=== PATIENT | female | born 1945 | race Caucasian/White ===

== ENCOUNTER 2019-03-14 08:37 | Day surgery (SDC) | payer MEDICARE ==
[~2019-03-14 08:37] MED LIST: Acetaminophen TAB* 325 MG PO PRN; Buffered Lidocaine 1% SYRIN* 1 ML/SYRINGE INTRADERM ONE
[2019-03-14] MEDS ORDERED: Midazolam* 1 MG/ML 2 ML VIAL (2 MG) ONE ×2 (10:29→11:02)
[2019-03-14] MEDS ORDERED: fentaNYL* 50 MCG/ML 2 ML VIAL (100 MCG VIAL) ONE (10:29)
[2019-03-14] MEDS ORDERED: Phenylephrine OPHTH SOL 2.5%* 2 ML ONE (11:43)
[2019-03-14] MEDS ORDERED: Ketorolac 0.5% OPHTH (NF) 0.5 % 5 ML BTL ONE (11:43)
[2019-03-14] MEDS ORDERED: Tropicamide 1% OPTH.SOL* BTL ONE (11:43)
[2019-03-14] MEDS ORDERED: Lidocaine 1%* 5 ML VIAL ONE (11:43)
[2019-03-14] MEDS ORDERED: Tetracaine 0.5% OPTH.SOL 4 ML* 1 DROP BTL ONE (11:43)
[2019-03-14] MEDS ORDERED: Cyclopentolate 1% OPTH.SOL* 2 ML BTL ONE (11:43)
[2019-03-14] MEDS ORDERED: Neomycin/Polymy/Dex OPHTH.OIN* 3.5 GM ONE (11:43)
[2019-03-14 11:53] VITALS: BP 126/51
--- NOTE | 2019-03-14 14:43 | OP ---
DATE OF OPERATION: 03/14/19 [facility] DATE OF : 45 SURGEON: Dr. Porfirio Bethea. DRAFTER ASSISTANT: None. ANESTHESIA: Topical with intravenous sedation. PRE-OP DIAGNOSIS: Cataract, left eye. POST-OP DIAGNOSIS: Cataract, left eye. OPERATIVE PROCEDURE: Phacoemulsification and cataract extraction with posterior chamber intraocular lens implant, left eye. COMPLICATIONS: None. BLOOD LOSS: None. DESCRIPTION OF PROCEDURE: The patient was brought to the operating room and received a small amount of intravenous sedation. A drop of Tetracaine was placed in her left eye. She was prepped and draped in the usual sterile fashion for ophthalmic surgery and attention was directed to the left eye where a speculum was placed. A paracentesis was created at the 5 o'clock position and 0.1 cc of 1 percent preservative-free Lidocaine was injected into the anterior chamber followed by DisCoVisc. The eye was digitally stabilized while a 2.75 mm keratome was used to create a triplanar clear corneal incision at the 3 o'clock position. A continuous curvilinear capsulorrhexis was created with a cystotome and Utrata forceps. BSS on a cannula was used to hydrodissect the lens from the capsule. Phacoemulsification was performed in a divide-and- conquer technique to create four fragments which were removed. Residual cortical material was removed with irrigation and aspiration. DisCoVisc was used to inflate the capsular bag and an AU00T0 21.0 diopter lens was folded and inserted into the capsular bag. DisCoVisc was removed using irrigation and aspiration. BSS on a cannula was used to hydrate the corneal stroma and seal the wound. At the end of the case the pupil was round and the lens was centered. The eye was of normal pressure and the wound was water tight. The speculum was removed and topical Maxitrol ointment was placed on the surface of the eye. The eye was closed, patched and shielded and the patient was sent to the recovery room in stable condition with post operative instructions and follow-up appointment given. [id number]/[facility] #: [id number] MTDD
== END 2019-03-14 11:41 | disposition home or self-care (01) ==
LOC: OREAST 08:37
PROVIDERS: ATTEND Ophthalmology
DX: H25.12 Age-related nuclear cataract, left eye (principal); I10 Essential (primary) hypertension; I35.1 Nonrheumatic aortic (valve) insufficiency
CPT/HCPCS: A9270-GY; J2250; J3010; V2632

== ENCOUNTER 2019-03-21 10:36 | Day surgery (SDC) | payer MEDICARE ==
[2019-03-21] MEDS ORDERED: Neomycin/Polymy/Dex OPHTH.OIN* 3.5 GM ONE (11:42)
[2019-03-21] MEDS ORDERED: Tropicamide 1% OPTH.SOL* BTL ONE (11:42)
[2019-03-21] MEDS ORDERED: Phenylephrine OPHTH SOL 2.5%* 2 ML ONE (11:42)
[2019-03-21] MEDS ORDERED: Lidocaine 1%** 5 ML VIAL ONE (11:42)
[2019-03-21] MEDS ORDERED: Cyclopentolate 1% OPTH.SOL* 2 ML BTL ONE (11:42)
[2019-03-21] MEDS ORDERED: Ketorolac 0.5% OPHTH (NF) 0.5 % 5 ML BTL ONE (11:42)
[2019-03-21] MEDS ORDERED: Tetracaine 0.5% OPTH.SOL 4 ML* 1 DROP BTL ONE (11:42)
[2019-03-21] MEDS ORDERED: Midazolam* 1 MG/ML 2 ML VIAL (2 MG) ONE (12:47)
[2019-03-21] MEDS ORDERED: Propofol* 10 MG/ML 20 ML BTL ONE (12:59)
[2019-03-21] MEDS ORDERED: Lidocaine 2% PF * 5 ML VIAL ONE (12:59)
--- NOTE | 2019-03-21 13:43 | OP ---
DATE OF OPERATION: 03/21/19 DATE OF : 45 SURGEON: Dr. Porfirio Bethea CUSTOMER ASSISTANCE ASSOCIATE: None. ANESTHESIA: Topical with intravenous sedation. PRE-OP DIAGNOSIS: Cataract, right eye. POST-OP DIAGNOSIS: Cataract, right eye. OPERATIVE PROCEDURE: Phacoemulsification and cataract extraction with posterior chamber intraocular lens implant, right eye. COMPLICATIONS: None. BLOOD LOSS: None. OPERATIVE FINDINGS: The patient was brought to the operating room and received a small amount of int ravenous sedation. A drop of Tetracaine was placed in her right eye. She was prepped and draped in the usual sterile fashion for ophthalmic surgery and attention was directed to the right eye where a speculum was placed. A paracentesis was created at the 11 o'clock position and 0.1 cc of 1 percent p reservative-free Lidocaine was injected into the anterior chamber followed by DisCoVisc. The eye was digitally stabilized while a 2.75 mm keratome was used to create a triplanar clear corneal incision at the 9 o'clock position. A continuous curvilinear capsulorrhexis was created with a cystotome and Utrata forceps. BSS on a cannula was used to hydrodissect the lens from the capsule. Phacoemulsific ation was performed in a ejnoml-erk-[id number] technique to create four fragments which were removed. R esidual cortical material was removed with irrigation and aspiration. DisCoVisc was used to inflate t he capsular bag and an AU00T0 23.2 diopter lens was folded and inserted into the capsular bag. DisCo Visc was removed using irrigation and aspiration. BSS on a cannula was used to hydrate the corneal s troma and seal the wound. At the end of the case the pupil was round and the lens was centered. The eye was of normal pressure and the wound was water tight. The speculum was removed and topical Maxit rol ointment was placed on the surface of the eye. The eye was closed, patched and shielded and the patient was sent to the recovery room in stable condition with post operative instructions and follow -up appointment given. [id number]/[facility] #: [id number]
[2019-03-21 13:48] VITALS: BP 108/53
== END 2019-03-21 13:30 | disposition home or self-care (01) ==
LOC: OREAST 10:36
PROVIDERS: ATTEND Ophthalmology
DX: Z01.818 Encounter for other preprocedural examination (principal); H25.11 Age-related nuclear cataract, right eye; R03.0 Elevated blood-pressure reading, without diagnosis of hypertension; J30.1 Allergic rhinitis due to pollen; I10 Essential (primary) hypertension; I35.1 Nonrheumatic aortic (valve) insufficiency
CPT/HCPCS: A9270-GY; J2250; J2704; V2632